=== PATIENT | male | born 1970 | race Two or more races ===

== ENCOUNTER 2021-01-12 08:00 | Outpatient (CLI) | payer OTHER | END 2021-01-12 08:30 | disposition home or self-care (01) | LOC: PPH VACUNA 08:00 | PROVIDERS: ATTEND Emergency Medicine Pediatric Emergency Medicine | DX: Z23 Encounter for immunization (principal) ==

== ENCOUNTER → 2021-02-04 08:51 | Outpatient (CLI) | payer OTHER | END | disposition home or self-care (01) | LOC: LAB 08:51 | PROVIDERS: ATTEND Internal Medicine Cardiovascular Disease | DX: N42.0 Calculus of prostate (principal); I10 Essential (primary) hypertension; E03.8 Other specified hypothyroidism; E11.9 Type 2 diabetes mellitus without complications; E78.2 Mixed hyperlipidemia; E55.9 Vitamin D deficiency, unspecified ==

== ENCOUNTER 2021-04-15 08:26 | Emergency (ER) | payer OTHER ==
[~2021-04-15] VITALS: Ht 170.2 cm; Wt 81.6 kg
[2021-04-15] MEDS ORDERED: SYNTHROID50 MCG PO (08:38)
== END 2021-04-15 10:24 | disposition home or self-care (01) ==
LOC: ER 08:26
DX: B34.9 Viral infection, unspecified (principal); E03.9 Hypothyroidism, unspecified; Z20.822 Contact with and (suspected) exposure to COVID-19

== ENCOUNTER 2021-12-16 08:00 | Outpatient (CLI) | payer OTHER ==
[~2021-12-16 08:00] MED LIST: SYNTHROID50 MCG PO
== END 2021-12-16 08:05 | disposition home or self-care (01) ==
LOC: PPH VACUNA 08:00
PROVIDERS: ATTEND Emergency Medicine Pediatric Emergency Medicine
DX: Z23 Encounter for immunization (principal)

== ENCOUNTER 2022-03-31 14:41 | Emergency (ER) | payer OTHER ==
[~2022-03-31] VITALS: Ht 170.2 cm; Wt 80.7 kg
== END 2022-03-31 21:02 | disposition home or self-care (01) ==
LOC: ER 14:41
DX: R07.9 Chest pain, unspecified (principal)

== ENCOUNTER 2022-08-30 10:31 | Outpatient (CLI) | payer OTHER | END 2022-08-30 10:42 | disposition home or self-care (01) | LOC: RAD 10:31 | DX: M99.01 Segmental and somatic dysfunction of cervical region (principal); M25.511 Pain in right shoulder ==

== ENCOUNTER 2022-11-16 10:17 | Emergency (ER) | payer OTHER ==
[~2022-11-16] VITALS: Ht 170.2 cm; Wt 78.0 kg
== END 2022-11-16 12:08 | disposition home or self-care (01) ==
LOC: ER 10:17
DX: J32.1 Chronic frontal sinusitis (principal); J40 Bronchitis, not specified as acute or chronic

== ENCOUNTER 2022-12-16 | Outpatient (CLI) | payer OTHER | END 2022-12-16 00:15 | disposition home or self-care (01) | LOC: PPH VACUNA | PROVIDERS: ATTEND Emergency Medicine Pediatric Emergency Medicine | DX: Z23 Encounter for immunization (principal) ==

== ENCOUNTER 2023-03-18 13:28 | Emergency (ER) | payer OTHER ==
[~2023-03-18] VITALS: Ht 170.2 cm; Wt 127.0 kg
[2023-03-18 14:31] LABS: HEMATOCRIT 45.3 % (39.0-48.0); HEMOGLOBIN 15.3 g/dL (13-16.00); MEAN CELL VOLUME 84.1 fL (80.0-100.00); MEAN CORPUSCULAR HEMOGLOBIN 28.3 pg (27.00-32.0); MEAN CORPUSCULAR HGB CONC 33.7 g/dl (32.0-36.0); PLATELET COUNT 252 K/uL (150-450); RED BLOOD COUNT 5.38 M/uL (4.00-6.00); RED CELL DISTRIBUTION WIDTH 13.6 % (11.5-14.5)
[2023-03-18] MEDS ORDERED: ZITHROMAX500 MG PO (15:28)
[2023-03-18] MEDS ORDERED: TUSNEL LIQUID178 ML PO (15:28)
== END 2023-03-18 15:44 | disposition home or self-care (01) ==
LOC: ER 13:28
PROVIDERS: General Practice
DX: J06.9 Acute upper respiratory infection, unspecified (principal); Z20.822 Contact with and (suspected) exposure to COVID-19

== ENCOUNTER 2023-05-18 08:40 | Outpatient (CLI) | payer OTHER ==
[~2023-05-18 08:40] MED LIST changes: +TUSNEL LIQUID178 ML PO; +ZITHROMAX500 MG PO
== END 2023-05-18 08:50 | disposition home or self-care (01) ==
LOC: LAB 08:40
DX: U07.1 COVID-19 (principal)

== ENCOUNTER 2023-10-11 09:26 | Outpatient (CLI) | payer OTHER ==
[2023-10-11] MEDS ORDERED: ZYRTEC10 MG PO (16:22)
[2023-10-11] MEDS ORDERED: GUMSOL SPRAY30 ML MM (16:22)
[2023-10-11] MEDS ORDERED: MUCINEX DM ER1 EACH PO (16:22)
[2023-10-11] MEDS ORDERED: SINGULAIR10 MG PO (16:22)
== END 2023-10-11 09:28 | disposition home or self-care (01) ==
LOC: LAB 09:26
PROVIDERS: ATTEND Preventive Medicine Occupational Medicine
DX: J11.1 Influenza due to unidentified influenza virus with other respiratory manifestations (principal); Z20.828 Contact with and (suspected) exposure to other viral communicable diseases

== ENCOUNTER 2023-10-11 13:32 | Emergency (ER) | payer OTHER ==
[~2023-10-11] VITALS: Ht 170.2 cm; Wt 81.6 kg
[2023-10-11] MEDS ORDERED: SINGULAIR10 MG PO (16:22)
[2023-10-11] MEDS ORDERED: GUMSOL SPRAY30 ML MM (16:22)
[2023-10-11] MEDS ORDERED: ZYRTEC10 MG PO (16:22)
[2023-10-11] MEDS ORDERED: MUCINEX DM ER1 EACH PO (16:22)
== END 2023-10-11 16:30 | disposition home or self-care (01) ==
LOC: ER 13:33
DX: R53.81 Other malaise (principal); J06.9 Acute upper respiratory infection, unspecified; E03.8 Other specified hypothyroidism

== ENCOUNTER 2024-01-23 08:35 | Outpatient (CLI) | payer OTHER ==
[~2024-01-23 08:35] MED LIST changes: +GUMSOL SPRAY30 ML MM; +MUCINEX DM ER1 EACH PO; +SINGULAIR10 MG PO; +ZYRTEC10 MG PO
== END 2024-01-23 09:00 | disposition home or self-care (01) ==
LOC: PPH VACUNA 08:35
PROVIDERS: ATTEND Emergency Medicine Pediatric Emergency Medicine
DX: Z23 Encounter for immunization (principal)

== ENCOUNTER 2024-05-30 12:38 | Emergency (ER) | payer OTHER ==
[~2024-05-30] VITALS: Ht 170.2 cm; Wt 81.6 kg
[2024-05-30 12:59] VITALS: BP 125/81; O2SAT 97
[2024-05-30] MEDS ORDERED: KETOROLAC TROMETHAMINE 60 MG VIAL IM ONE ×2 (13:38→13:45)
[2024-05-30] MEDS ORDERED: DICLOFENAC SODI75 MG PO (14:32)
== END 2024-05-30 14:38 | disposition home or self-care (01) ==
LOC: ER 12:40
DX: M94.0 Chondrocostal junction syndrome [Tietze] (principal)

== ENCOUNTER 2025-02-15 13:33 | Outpatient (CLI) | payer OTHER ==
[~2025-02-15 13:33] MED LIST changes: +DICLOFENAC SODI75 MG PO
== END 2025-02-15 13:43 | disposition home or self-care (01) ==
LOC: PPH VACUNA 13:33
PROVIDERS: ATTEND Emergency Medicine Pediatric Emergency Medicine
DX: Z23 Encounter for immunization (principal)